=== PATIENT | female | born 1995 | race Caucasian/White ===

== ENCOUNTER 2018-03-13 19:20 | Emergency (ER) | payer MEDICAID ==
[2018-03-13 19:55] VITALS: BP 115/73
[2018-03-13 21:55] LABS: HCG Qualitative,Urine Negative (Negative)
[2018-03-13 21:57] LABS: Bacteria,Urine 1+ /HPF (Negative); Bilirubin,Urine NEG (Negative); Blood,Urine NEG (Negative); Calcium Oxalate Crystals,Urine 1+; Color,Urine Yellow (Yellow); Mucus,Urine FEW /HPF; Protein,Urine <15 mg/dL mg/dL (Negative); Urobilinogen,Urine < 2.0 mg/dL (<2.0)
--- NOTE | 2018-03-14 01:55 | Emergency Department Report ---
ED Abdominal Pain HPI - General Chief Complaint: Back Pain/Injury Stated Complaint: ABD PAIN Time Seen by Provider: 03/13/18 22:24 Source: patient Mode of arrival: Ambulatory Limitations: No Limitations - History of Present Illness Initial Comments: 22-year-old female comes in complaint of left flank pain that radiates across her abdomen to the right flank. Reports when I go I still feel like I have to go". She admits to chills no fever abdominal pain as intermittent she reports that she is having sharp pains for 2 days. She does not have a primary care provider patient reports she has not taken anything for her pain. 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 She reports that she was on clonazepam and BuSpar but currently not on any medication. She reports this lasted her therapist in a long time but then she says less than a year and then she says about 8 months. Patient reports she has never been hospitalized for any of her psychiatric diagnoses. Patient but she is not working she is living with a friend which is temporary family lives in [place] she was thinking of moving to [place] where she has family there. Patient is not sure how long she is going to be here. Complaint: flank pain -: days(s) (2) Location: L flank Migration to: RLQ Severity scale (0 -10): 10 Quality: stabbing Consistency: intermittent Improves With: nothing Worsens With: nothing Associated Symptoms: denies other symptoms - Related Data LMP Date: 02/15/18 Previous Rx's Medication Instructions Recorded Last Taken Type Dicyclomine [Bentyl] 10 mg PO QID #24 capsule 03/14/18 Unknown Rx Allergies Allergy/AdvReac Type Severity Reaction Status Date / Time No Known Allergies Allergy Unverified 03/13/18 19:55 ED Review of Systems ROS: Stated complaint: ABD PAIN Other details as noted in HPI Gastrointestinal: abdominal pain Genitourinary: other (left flank pain) Musculoskeletal: denies: back pain, joint swelling, arthralgia Skin: denies: rash, lesions Neurological: denies: headache, weakness, paresthesias Psychiatric: anxiety. denies: depression Hematological/Lymphatic: denies: easy bleeding, easy bruising ED Past Medical Hx - Past Medical History Previous Medical History?: No - Surgical History Past Surgical History?: No - Social History Smoking Status: Never Smoker Substance Use Type: Alcohol - Medications Home Medications: Home Medications Medication Instructions Recorded Confirmed Last Taken Type Dicyclomine [Bentyl] 10 mg PO QID #24 capsule 03/14/18 Unknown Rx ED Physical Exam - General Limitations: No Limitations General appearance: alert, in no apparent distress - Head Head exam: Present: atraumatic, normocephalic - Eye Eye exam: Present: normal appearance - ENT ENT exam: Present: mucous membranes moist - Respiratory Respiratory exam: Present: normal lung sounds bilaterally. Absent: wheezes - Cardiovascular Cardiovascular Exam: Present: regular rate, normal rhythm. Absent: systolic murmur, diastolic murmur, rubs, gallop - GI/Abdominal GI/Abdominal exam: Present: soft. Absent: distended, tenderness, guarding, rebound, rigid - Extremities Exam Extremities exam: Present: normal inspection - Back Exam Back exam: Present: normal inspection - Neurological Exam Neurological exam: Present: alert, oriented X3 - Psychiatric Psychiatric exam: Present: normal affect, anxious - Skin Skin exam: Present: warm, dry, intact, normal color. Absent: rash ED Course Vital Signs 03/13/18 19:49 Temperature 98.2 F Pulse Rate 80 Respiratory 18 Rate Blood Pressure 115/73 O2 Sat by Pulse 98 Oximetry Critical care attestation.: If time is entered above; I have spent that time in minutes in the direct care of this critically ill patient, excluding procedure time. ED Disposition Clinical Impression: Abdominal pain Qualifiers: Abdominal location: generalized Qualified Code(s): R10.84 - Generalized abdominal pain Disposition: TO HOME OR SELFCARE Is pt being admited?: No Does the pt Need Aspirin: No Condition: Stable Instructions: Abdominal Pain (ED) Additional Instructions: You is take pain medication for your stomach as prescribed. Follow up with a motor block mechanic I have listed several below. Prescriptions: Dicyclomine [Bentyl] 10 mg PO QID #24 capsule Referrals: PRIMARY CARE, [Primary Care Provider] - 3-5 Days [facility] [Provider Group] - 3-5 Days [facility] [Provider Group] - 3-5 Days [facility] [Provider Group] - 3-5 Days
== END 2018-03-14 02:30 | disposition home or self-care (01) ==
LOC: ED 19:20
DX: R10.9 Unspecified abdominal pain (principal)
CPT/HCPCS: 81001; 81025; 99283

== ENCOUNTER 2019-02-13 10:37 | Emergency (ER) | payer MEDICAID, OTHER ==
[2019-02-13 12:23] LABS: Hematocrit 38.5 % (30.3-42.9); Mean Corpuscular HGB Conc 34 % (30-34); Mean Corpuscular Volume 88 fl (79-97); Platelet Count 291 K/mm3 (140-440); Red Blood Count 4.39 M/mm3 (3.65-5.03); Red Cell Distribution Width 15.8 % (13.2-15.2)
[2019-02-13 12:47] LABS: BUN/Creatinine Ratio 12; Blood Urea Nitrogen 6 mg/dL (7-17); Calcium 9.5 mg/dL (8.4-10.2); Hemolysis Index 9
--- NOTE | 2019-02-13 13:20 | Emergency Department Report ---
HPI - General Chief Complaint: Dizziness Time Seen by Provider: 02/13/19 11:52 - HPI HPI: This is a 22-year-old female healthy looking presents to ED complaining of feeling nauseous, having some problems sleeping and loss of appetite for the past week. Patient states that she isn't having a stressful time in her down the spinous chest for one. Patient denies fevers/chills/dysuria/vaginal bleed last visit. Was normal. Patient states that only change is her travel to [place] by bus and back. She denies any medical conditions. She denies significant medications. Patient states she has been known to have a history of panic attacks but does not take medication for it. ED Past Medical Hx - Past Medical History Previous Medical History?: No - Surgical History Past Surgical History?: No - Social History Smoking Status: Never Smoker Substance Use Type: Alcohol - Medications Home Medications: Home Medications Medication Instructions Recorded Confirmed Last Taken Type Dicyclomine [Bentyl] 10 mg PO QID #24 capsule 03/14/18 Unknown Rx Ondansetron (Nf) [Zofran TAB] 8 mg PO Q8HR PRN #20 tablet 02/13/19 Unknown Rx diphenhydrAMINE [Benadryl CAP] 25 mg PO QHS #10 capsule 02/13/19 Unknown Rx ED Review of Systems ROS: Stated complaint: N/V LEGS SWELLING/DIZZY Other details as noted in HPI Comment: All other systems reviewed and negative Physical Exam - Physical Exam Vital Signs: Vital Signs 02/13/19 02/13/19 11:04 11:41 Temperature 97.9 F Pulse Rate 89 Respiratory 18 17 Rate Blood Pressure 142/79 O2 Sat by Pulse 99 Oximetry Physical Exam: GENERAL: Alert and oriented x3, no apparent distress, Normal Gait, atraumatic. HEAD: Head is normocephalic and a-traumatic. EYES: Extra ocular muscles are intact. Pupils are equal, round, and reactive to light and accommodation. MOUTH:Mouth is well hydrated and without lesions. Tonsils nonerythematous or swollen, Uvula midline, Tongue not elevated. Mucous membranes are moist. Posterior pharynx clear, no exudate or lesions. Patent airways. LUNGS: Symetrical with respiration, No wheezing, no rales or crackles, CTAB. HEART: S1, S2 present, regular rate and rhythm without murmur, no rubs, no gallops. Non tender to palpation A NEUROLOGIC: The patient is cooperative with no focal neurologic deficits. C PSYCHIATRIC: Mood is congruent with affect, denies suicidal or homicidal ideations. SKIN: Warm and dry, No lesions, No ulceration or induration present. ED Course Vital Signs 02/13/19 02/13/19 11:04 11:41 Temperature 97.9 F Pulse Rate 89 Respiratory 18 17 Rate Blood Pressure 142/79 O2 Sat by Pulse 99 Oximetry ED Medical Decision Making - Lab Data Result diagrams: 02/13/19 12:10 02/13/19 12:10 - Medical Decision Making 23-year-old female presents with a stress/panic disorder All last within normal limits. Discussed findings with the patient. Discussed patient to follow-up was also medical and be recessed outside therapist. Discussed removal from stress fractures. Discussed the patient can take Benadryl as needed 1 pill at night for sleep Discuss Zofran every 8 hours for nausea. Discuss follow-up with primary care physician. Patient is in no acute distress speaking in complete sentences Critical care attestation.: If time is entered above; I have spent that time in minutes in the direct care of this critically ill patient, excluding procedure time. ED Disposition Clinical Impression: Panic attack, Stress at home Disposition: DC-01 TO HOME OR SELFCARE Is pt being admited?: No Does the pt Need Aspirin: No Condition: Stable Instructions: Stress (ED) Additional Instructions: Make sure to follow up with the primary care physician as discussed. Take all your medications as you've been prescribed. If you have any worsening symptoms or develop new symptoms please return to ED immediately. Prescriptions: diphenhydrAMINE [Benadryl CAP] 25 mg PO QHS #10 capsule Ondansetron (Nf) [Zofran TAB] 8 mg PO Q8HR PRN #20 tablet PRN Reason: Nausea Referrals: SILVER RIVERS MD [Primary Care Provider] - 3-5 Days Forms: Accompanied Note, Work/School Release Form(ED) Time of Disposition: 13:20
[2019-02-13 13:43] VITALS: BP 109/55
== END 2019-02-13 13:43 | disposition home or self-care (01) ==
LOC: ED 10:37
DX: F41.0 Panic disorder [episodic paroxysmal anxiety] (principal); F43.9 Reaction to severe stress, unspecified
CPT/HCPCS: 36415; 80048; 84703; 85027

== ENCOUNTER 2019-03-12 08:42 | Emergency (ER) | payer MEDICAID, OTHER ==
[2019-03-12 08:57] VITALS: BP 136/82
[2019-03-12] MEDS ORDERED: TYLENOL ONE (09:43)
[2019-03-12] MEDS ORDERED: TORADOL IM ONE (09:56)
[2019-03-12] MEDS ORDERED: ZOFRAN ODT PO ONE (09:56)
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
[2019-03-12 10:38] LABS: Basophils % (Auto) 0.2 % (0.0-1.8); Hematocrit 38.5 % (30.3-42.9); Lymphocytes # (Auto) 0.7 K/mm3 (1.2-5.4); Lymphocytes % (Auto) 7.8 % (13.4-35.0); Mean Corpuscular HGB Conc 34 % (30-34); Mean Corpuscular Volume 88 fl (79-97); Monocytes # (Auto) 0.6 K/mm3 (0.0-0.8); Monocytes % (Auto) 6.6 % (0.0-7.3); Platelet Count 338 K/mm3 (140-440); Red Blood Count 4.37 M/mm3 (3.65-5.03); Red Cell Distribution Width 15.5 % (13.2-15.2)
[2019-03-12 10:55] LABS: BUN/Creatinine Ratio 16; Blood Urea Nitrogen 8 mg/dL (7-17); Calcium 9.9 mg/dL (8.4-10.2); Hemolysis Index 4
[2019-03-21] MEDS ORDERED: TYLENOL PO ONE (12:13)
== END 2019-03-12 11:17 | disposition home or self-care (01) ==
LOC: ED 08:42
DX: F41.8 Other specified anxiety disorders (principal)
CPT/HCPCS: 36415; 80048; 85025; 96372; 99283; J1885; Q0162

== ENCOUNTER 2019-03-14 20:48 | Emergency (ER) | payer MEDICAID, OTHER ==
[2019-03-14 21:23] LABS: Basophils % (Auto) 0.2 % (0.0-1.8); Eosinophils % (Auto) 0.3 % (0.0-4.3); Hematocrit 35.7 % (30.3-42.9); Hemoglobin 12.2 gm/dl (10.1-14.3); Lymphocytes % (Auto) 19.6 % (13.4-35.0); Mean Corpuscular HGB Conc 34 % (30-34); Mean Corpuscular Volume 88 fl (79-97); Platelet Count 306 K/mm3 (140-440); Red Blood Count 4.06 M/mm3 (3.65-5.03); Red Cell Distribution Width 15.3 % (13.2-15.2)
[2019-03-14 21:46] LABS: BUN/Creatinine Ratio 30; Blood Urea Nitrogen 15 mg/dL (7-17); Calcium 9.5 mg/dL (8.4-10.2); Hemolysis Index 12
[2019-03-14 21:47] LABS: HCG Qualitative,Urine Negative (Negative)
[2019-03-14 21:52] LABS: Bilirubin,Urine NEG (Negative); Blood,Urine NEG (Negative); Color,Urine Colorless (Yellow); Protein,Urine <15 mg/dL mg/dL (Negative); RBC,Urine < 1.0 /HPF (0.0-6.0); Urobilinogen,Urine < 2.0 mg/dL (<2.0); WBC,Urine < 1.0 /HPF (0.0-6.0)
--- NOTE | 2019-03-14 22:38 | Emergency Department Report ---
ED General Adult HPI - General Chief complaint: Dyspnea/Respdistress Stated complaint: SHORTNESS OF BREATH LOSS OF APPETITE BLURRED VISON Time Seen by Provider: 03/14/19 22:26 Source: patient Mode of arrival: Ambulatory Limitations: No Limitations - History of Present Illness Initial comments: Ms. Palomares is a healthy 23-year-old female who presents with headache, chest pain, shortness of breath right leg pain for the past 2 weeks. She is concerned for stress anxiety depression. She recently traveled by bus from [facility]. She has been stressed over several things. She does have a roommate. She is safe at home. She denies tobacco alcohol or drug use. Her mother has had issues with anxiety and panic attacks. She works as a clinical researcher. She denies suicidal homicidal ideation. She is not on oral contraceptive therapy. No family history of heart disease or VTE. This is patient's third visit to the ER within the month. -: Gradual, week(s) (2) Consistency: constant Improves with: none Worsens with: none Associated Symptoms: other (anxiety depression and paranoia) - Related Data Previous Rx's Medication Instructions Recorded Last Taken Type Dicyclomine [Bentyl] 10 mg PO QID #24 capsule 03/14/18 Unknown Rx Ondansetron (Nf) [Zofran TAB] 8 mg PO Q8HR PRN #20 tablet 02/13/19 Unknown Rx diphenhydrAMINE [Benadryl CAP] 25 mg PO QHS #10 capsule 02/13/19 Unknown Rx Ondansetron [Zofran Odt] 4 mg PO Q8HR PRN #15 tab.rapdis 03/12/19 Unknown Rx hydrOXYzine HCL [Atarax] 25 mg PO Q6HR PRN #15 tablet 03/12/19 Unknown Rx Allergies Allergy/AdvReac Type Severity Reaction Status Date / Time No Known Allergies Allergy Verified 03/12/19 09:43 ED Review of Systems ROS: Stated complaint: SHORTNESS OF BREATH LOSS OF APPETITE BLURRED VISON Other details as noted in HPI Comment: All other systems reviewed and negative Constitutional: malaise Respiratory: shortness of breath Cardiovascular: denies: chest pain ED Past Medical Hx - Past Medical History Previous Medical History?: No Hx Psychiatric Treatment: (anxiety) - Surgical History Past Surgical History?: No - Social History Smoking Status: Never Smoker Substance Use Type: Alcohol - Medications Home Medications: Home Medications Medication Instructions Recorded Confirmed Last Taken Type Dicyclomine [Bentyl] 10 mg PO QID #24 capsule 03/14/18 Unknown Rx Ondansetron (Nf) [Zofran TAB] 8 mg PO Q8HR PRN #20 tablet 02/13/19 Unknown Rx diphenhydrAMINE [Benadryl CAP] 25 mg PO QHS #10 capsule 02/13/19 Unknown Rx Ondansetron [Zofran Odt] 4 mg PO Q8HR PRN #15 tab.rapdis 03/12/19 Unknown Rx hydrOXYzine HCL [Atarax] 25 mg PO Q6HR PRN #15 tablet 03/12/19 Unknown Rx ED Physical Exam - General Limitations: No Limitations General appearance: alert, in no apparent distress - Head Head exam: Present: atraumatic, normocephalic - Eye Eye exam: Present: normal appearance - ENT ENT exam: Present: mucous membranes moist - Neck Neck exam: Present: normal inspection, full ROM - Respiratory Respiratory exam: Present: normal lung sounds bilaterally. Absent: respiratory distress, wheezes, rales, rhonchi - Cardiovascular Cardiovascular Exam: Present: regular rate, normal rhythm, normal heart sounds. Absent: systolic murmur, diastolic murmur, rubs, gallop - GI/Abdominal GI/Abdominal exam: Present: soft, normal bowel sounds. Absent: distended, tenderness, guarding, rebound - Extremities Exam Extremities exam: Present: normal inspection - Back Exam Back exam: Present: normal inspection - Neurological Exam Neurological exam: Present: alert, oriented X3 - Psychiatric Psychiatric exam: Present: normal affect, normal mood - Skin Skin exam: Present: warm, dry, intact, normal color. Absent: rash ED Course Vital Signs 03/14/19 21:02 Temperature 98.3 F Pulse Rate 87 Respiratory 16 Rate Blood Pressure 107/74 O2 Sat by Pulse 98 Oximetry ED Medical Decision Making - Lab Data Result diagrams: 03/14/19 21:14 03/14/19 21:14 Laboratory Results - last 24 hr 03/14/19 03/14/19 03/14/19 21:14 21:14 21:30 WBC 10.1 RBC 4.06 Hgb 12.2 Hct 35.7 MCV 88 MCH 30 MCHC 34 RDW 15.3 H Plt Count 306 Lymph % (Auto) 19.6 [place] % (Auto) 10.0 H Eos % (Auto) 0.3 Baso % (Auto) 0.2 Lymph # 2.0 [place] # 1.0 H Eos # 0.0 Baso # 0.0 Seg Neutrophils % 69.9 Seg Neutrophils # 7.1 Sodium 135 L Potassium 4.3 Chloride 99.0 Carbon Dioxide 25 Anion Gap 15 BUN 15 Creatinine 0.5 L Estimated GFR > 60 BUN/Creatinine Ratio 30 Glucose 87 Calcium 9.5 Urine Color Colorless Urine Turbidity Clear Urine pH 7.0 Ur Specific [place] 1.008 Urine Protein <15 mg/dl Urine Glucose (UA) Neg Urine Ketones Neg Urine Blood Neg Urine Nitrite Neg Ur Reducing Substances Not Reportable Urine Bilirubin Neg Urine Ictotest Not Reportable Urine Urobilinogen < 2.0 Ur Leukocyte Esterase Neg Urine WBC (Auto) < 1.0 Urine RBC (Auto) < 1.0 U Epithel Cells (Auto) 1.0 Urine HCG, Qual Negative - EKG Data -: EKG Interpreted by Me EKG shows normal: sinus rhythm, axis, intervals, QRS complexes, ST-T waves Rate: normal - EKG Data 03/14/19 22:50 NSR nl rate nl axis nl intervals no ST-T signs of ischemia no ST elevation rate 80 beats a minute - Medical Decision Making Ms. Palomares presents with headache shortness of breath right leg pain. She also presents with anxiety and depression. No indication of acute medical illness. I do not suspect pulmonary embolism with history of recent travel. PERC negative for PE. She denies suicidal homicidal ideation. She denies domestic violence. I have referred her to outside clinic and local mental Health Center. I strongly recommended counseling, psychotherapy discharged home in stable condition. Critical care attestation.: If time is entered above; I have spent that time in minutes in the direct care of this critically ill patient, excluding procedure time. ED Disposition Clinical Impression: Anxiety with depression Disposition: DC-01 TO HOME OR SELFCARE Is pt being admited?: No Does the pt Need Aspirin: No Condition: Stable Instructions: Anxiety (ED), Depression (ED) Referrals: [facility] [Outside] - 3-5 Days [facility] [Outside] - 3-5 Days
[2019-03-14 23:11] VITALS: BP 110/74
== END 2019-03-14 23:20 | disposition home or self-care (01) ==
LOC: ED 20:48
DX: F41.9 Anxiety disorder, unspecified (principal); F32.9 Major depressive disorder, single episode, unspecified; Z79.899 Other long term (current) drug therapy
CPT/HCPCS: 36415; 80048; 81001; 81025; 85025; 93005; 93010; 99283